=== PATIENT | female | born 2000 | race Caucasian/White ===

== ENCOUNTER 2022-04-19 12:26 | Day surgery (SDC) | payer BC ==
[2022-04-19 13:41] VITALS: TEMP 98.4; BMI 28.3
[2022-04-19 14:48] VITALS: BP 101/72
== END 2022-04-19 14:25 | disposition home or self-care (01) ==
LOC: RAD 12:26
PROVIDERS: ATTEND Pediatrics
PROC: 009U3ZX Drainage of Spinal Canal, Percutaneous Approach, Diagnostic (ICD-10-PCS; principal; 2022-04-19)
DX: R51.9 Headache, unspecified (principal); H47.10 Unspecified papilledema
CPT/HCPCS: 62270